=== PATIENT | female | born 1955 | race Caucasian/White ===

== ENCOUNTER 2016-12-02 12:27 | Emergency (ER) | payer MEDICARE ==
[2016-12-02] MEDS ORDERED: METHYLPREDNISOLONE SOD SUCC/PF 40 MG/ML VIAL IV ONE (12:47)
[2016-12-02] MEDS ORDERED: oxyCODONE HCL 5 MG TABLET PO ONE ×4 (12:48→14:01)
[2016-12-02] MEDS ORDERED: METHYLPREDNISOLONE SOD SUCC/PF 40 MG/ML VIAL ONE (12:59)
[2016-12-02] MEDS ORDERED: oxyCODONE HCL 5 MG TABLET ONE ×2 (13:00→14:01)
--- NOTE | 2016-12-02 13:09 | ERNOTE ---
Headache ER HPI - Narrative Date of Service: 12/02/16 - General Presenting Symptoms: headache Time Seen by Provider: 12/02/16 12:33 Source: patient, family Exam Limitations: no limitations - Immun/Allergies/Home Medications Immunizations: IMMUNIZATION HX Immunizations Up to Date Yes History of Influenza Vaccine No Hx Pneumococcal Vaccination No Allergies/Adverse Reactions: Allergies mirtazapine Allergy (Verified 12/02/16 12:40) hydrocodone bitartrate [From Vicodin] Adverse Reaction (Mild, Verified 12/02/16 12:40) upset stomach Home Medications: HOME MEDICATIONS Magic Mouthwash 10 ml PO Q2H PRN 03/19/16 [Last Taken Unknown] ALPRAZolam [Xanax] 0.5 mg PO BID PRN 12/02/16 [Last Taken Unknown] Albuterol Sulfate [Albuterol Sulfate 2.5 MG/3 ML] 2.5 mg IH QID 12/02/16 [Last Taken Unknown] Lipase/Protease/Amylase [Zenpep Dr 20,000 Units Capsule] 1 each PO AC 12/02/16 [ Last Taken Unknown] Melatonin 5 - 10 mg PO HS 12/02/16 [Last Taken Unknown] Omeprazole 40 mg PO DAILY 12/02/16 [Last Taken Unknown] Ondansetron [Zofran Odt] 4 mg PO Q4H PRN 12/02/16 [Last Taken Unknown] Promethazine HCl/Codeine [Promethazine-Codeine Syrup] 5 ml PO Q4H 12/02/16 [ Last Taken Unknown] oxyCODONE HCL [Oxycodone] 2 tab PO Q6H PRN #240 tab 12/02/16 [Last Taken Unknown ] oxyCODONE HCL [Oxycontin] 10 mg PO Q12H #60 tab.er.12h 12/02/16 [Last Taken Unknown] - Pain Pain Score: 7 - History of Present Illness Narrative: Known metastatic pancreatic cancer. Pain not controlled. Head and neck. Neck MRI planned for tomorrow. On prn oxycodone 5 mg at home. Thinking about hospice for tomorrow. Here because she can't stand the pain. Activity at onset: other - none Timing of Headache: constant, worse Context Headache: Present: other Quality: Present: achy, sharp Severity Maximum: Present: severe Severity-Currently: Present: severe Headache frequency: Present: other Modifying Factors - (Improves): Reports: other - nothing Modifying Factors - (Worsens): Reports: movement Associated Symptoms: Reports: other - none Exacerbated by:: Reports: light, noise, movement, position Prior Treament: Reports: treated by physician, other - oxycodone, flexeril Review of Systems - Review of Systems Constitutional: Present: recent illness, weakness, malaise EYE: Present: no symptoms reported ENT: Present: no symptoms reported Respiratory: Present: no symptoms reported Cardiology: Present: no symptoms reported Gastrointestinal/Abdominal: Present: no symptoms reported Genitourinary: Present: no symptoms reported Musculoskeletal: Present: neck pain Skin: Present: no symptoms reported Neurological: Present: no symptoms reported, anxiety, depressed Endocrine: Present: no symptoms reported Hematologic/Lymphatic: Present: no symptoms reported Psych: Present: no symptoms reported All Other Systems: All systems neg except as marked - Patient's Past Medical History Patient History - Medical: No pertinent hx Patient History - Cardiac/Respiratory: Asthma Patient History - Cancer: Pancreatic, Surgical Treatment, Other Patient History - Surgical Procedures: Appendectomy, Cholecystectomy, Total Knee Replacement, T & A, Other Patient History - Other: None - Family History Father Family History - Medical: Family History - Cardiac/Respiratory: Coronary Heart Disease, Myocardial Infarction Mother Family History - Medical: Alzheimer's Disease Brother Family History - Medical: Family History - Cardiac/Respiratory: Myocardial Infarction - Social History Living Situations: home Psych History: No pertinent hx Does anyone smoke in the home?: Yes Smoking Status: Current every day smoker Have you smoked in the past 12 months: Yes Alcohol Use: none Drug Use: none - Immunizations Immunizations Up to Date: Yes Hx Pneumococcal Vaccination: No History of Influenza Vaccine: No Physical Exam - Physical Exam General Appearance: Present: alert, moderate distress, other - malnutrition Head Exam: Present: normal inspection Eye Exam: Normal inspection: bilateral, PERRL: bilateral, EOMI: bilateral Ears, Nose, Throat: Present: normal ENT inspection Neck: Present: tender posterior midline Respiratory: Present: no respiratory distress, normal breath sounds Cardiovascular/Chest: Present: regular rate, rhythm, no murmur Gastrointestinal/Abdominal: Present: normal bowel sounds, nondistended, no organomegaly, tenderness - epigastrium Back Exam: Present: normal inspection, no CVA tenderness, no vertebral tenderness Extremity Exam: Present: normal inspection, no edema Neurological Exam: Present: alert, oriented, other - anxious Skin Exam: Present: normal color, warm/dry ED Progress - Results and Orders Patient's Lab Results:: I have reviewed the patient's lab results. - Vital Signs Patient's Vital Signs:: I have reviewed the patient's vital signs. Vital Signs: Vital Signs 12/02/16 12:35 Temperature 37.2 C Pulse Rate 113 H Respiratory 12 Rate Blood Pressure 135/74 O2 Sat by Pulse 100 Oximetry - CT/Ultrasound CT/Ultrasound Narrative: I have reviewed the radiologist's neck CT scan report, which shows no neck mets , but multiple lung mets in the apices, masslike consolidation in the RUL of the lung and a right lung pleural effusion, most consistent with metastatic disease. - Progress/Reassessment Chief Complaint: Headache Progress:: Improved Progress Note-Subjective: 12/02/16 14:38 O2sat 87% on room air, requires home O2 at 2 liters per minute nasal canula. Departure Clinical Impression: Lung nodule, multiple, Brain metastases, Neck pain, Hypoxemia - Departure Disposition: Home self-care Condition: Fair Instructions: Bone Metastasis, Pancreatic Cancer, Metastatic Brain Tumor, Hypoxemia Additional Instructions: keep all followup appointments. oxygen will be delivered this afternoon to your house. Referrals: Sheri Harris MD [Primary Care Provider] - Prescriptions: oxyCODONE HCL [Oxycodone] 2 tab PO Q6H PRN #240 tab PRN Reason: Severe Pain oxyCODONE HCL [Oxycontin] 10 mg PO Q12H #60 tab.er.12h
[2016-12-02] MEDS ORDERED: KETOROLAC TROMETHAMINE 60 MG/2 ML VIAL IM ONE (13:36)
[2016-12-02] MEDS ORDERED: KETOROLAC TROMETHAMINE 30 MG/ML VIAL IV ONE (14:01)
[2016-12-02] MEDS ORDERED: KETOROLAC TROMETHAMINE 30 MG/ML VIAL ONE (14:01)
[2016-12-02 17:08] VITALS: BP 111/74
== END 2016-12-02 15:50 | disposition home or self-care (01) ==
LOC: ER 12:27
DX: C79.31 Secondary malignant neoplasm of brain (principal); R91.8 Other nonspecific abnormal finding of lung field; R09.02 Hypoxemia; M54.2 Cervicalgia; Z85.07 Personal history of malignant neoplasm of pancreas; J45.909 Unspecified asthma, uncomplicated; F17.200 Nicotine dependence, unspecified, uncomplicated